=== PATIENT | male | born 1970 | race Caucasian/White ===

== ENCOUNTER 2021-03-07 08:47 | Emergency (ER) | payer OTHER, BC ==
[~2021-03-07] VITALS: Ht 175.3 cm; Wt 109.1 kg
[2021-03-07 09:13] VITALS: BP 146/78
--- NOTE | 2021-03-07 09:51 | RAD ---
EXAM: AP, oblique, lateral and sunrise views of the right knee. DATE: 03/07/2021 9:30 AM INDICATION: Reason: RIGHT POSTERIOR KNEE PAIN / Spl. Instructions: / History: COMPARISON: No Prior FINDINGS: No acute fracture or dislocation. Small joint effusion. Joint spaces are preserved without significan t degenerative/proliferative change. Neutral patellar tracking. IMPRESSION: No acute fracture or dislocation. Electronically signed by: Serjio Jerome MD (03/07/2021 9:49 AM) [id number]
[2021-03-07] MEDS ORDERED: CYCL-331 PO (10:03)
--- NOTE | 2021-03-07 10:04 | PHYS DOC ---
Past History Past Surgical History: Other Additional Past Surgical Histo: hernia sx Alcohol Use: None General Adult EDM: Chief Complaint: LOWEREXTREMITY INJURY HPI: HPI: 50-year-old male presents with right posterior leg pain. Patient was running yesterday and he felt a popping sensation in the back medial part of his thigh. Today he has pain in this area especially with movement radiates down to the knee. It is most painful when he stands up and first starts to walk. After he gets going the pain decreases. It is also painful if he sitting down in the chair is pushing on that area. He denies direct trauma or fall. He has no other complaints this time. Review of Systems: Review of Systems: Constitutional: Denies fever or chills Eyes: Denies change in visual acuity HENT: Denies nasal congestion or sore throat Respiratory: Denies cough or shortness of breath Cardiovascular: Denies chest pain or edema GI: Denies abdominal pain, nausea, vomiting, bloody stools or diarrhea : Denies dysuria Musculoskeletal: Right posterior thigh pain Integument: Denies rash Neurologic: Denies headache, focal weakness or sensory changes Endocrine: Denies polyuria or polydipsia Lymphatic: Denies swollen glands Psychiatric: Denies depression or anxiety Allergies: Allergies: Allergies Coded Allergies Type Severity Reaction Last Updated Verified No Known Drug Allergies 03/07/21 No Physical Exam: PE: Constitutional: Well developed, well nourished, obese, no acute distress, non- toxic appearance. [] HENT: Normocephalic, atraumatic, bilateral external ears normal, oropharynx moist, no oral exudates, nose normal. [] Eyes: PERRLA, EOMI, conjunctiva normal, no discharge. [] Neck: Normal range of motion, no tenderness, supple, no stridor. [] Cardiovascular: Heart rate regular rhythm, no murmur [] Lungs & Thorax: Bilateral breath sounds clear to auscultation [] Abdomen: Bowel sounds normal, soft, no tenderness, no masses, no pulsatile masses. [] Skin: Warm, dry, no erythema, no rash. [] Back: No tenderness, no CVA tenderness. [] Extremities: Right posterior medial thigh tenderness, muscle spasm of the same. [] Neurologic: Alert and oriented X 3, normal motor function, normal sensory function, no focal deficits noted. [] Psychologic: Affect normal, judgement normal, mood normal. [] Current Patient Data: Vital Signs: Vital Signs Date Time Temp Pulse Resp B/P (MAP) Pulse Ox O2 Delivery O2 Flow Rate FiO2 03/07/21 09:13 102 18 146/78 98 EKG: EKG: [] Radiology/Procedures: Radiology/Procedures: [] Impressions: EXAM: AP, oblique, lateral and sunrise views of the right knee. DATE: 03/07/2021 9:30 AM INDICATION: Reason: RIGHT POSTERIOR KNEE PAIN / Spl. Instructions: / History: COMPARISON: No Prior FINDINGS: No acute fracture or dislocation. Small joint effusion. Joint spaces are preserved without significant degenerative/proliferative change. Neutral patellar tracking. IMPRESSION: No acute fracture or dislocation. Electronically signed by: Serjio Jerome MD (03/07/2021 9:49 AM) [id number] DICTATED AND SIGNED BY: SERJIO JEROME MD DATE: 03/07/21 0949 CC: TEJINDER KAY DO ~MTH0 0 Heart Score: C/O Chest Pain: N/A Risk Factors: Risk Factors: DM, Current or recent (<one month) smoker, HTN, HLP, family history of CAD, obesity. Risk Scores: Score 0 - 3: 2.5% MACE over next 6 weeks - Discharge Home Score 4 - 6: 20.3% MACE over next 6 weeks - Admit for Clinical Observation Score 7 - 10: 72.7% MACE over next 6 weeks - Early Invasive Strategies Course & Med Decision Making: Course & Med Decision Making Pertinent Labs and Imaging studies reviewed. (See chart for details) The patient appears to have a strain and/or possible partial tear of the biceps femoris muscle of the right leg. I will treat him with ibuprofen 600 3 times a day and Flexeril. I will give the patient 1 week off from work as there is no light duty. 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 If his condition does not significantly improve he will need to see follow-up. He is stable for discharge at this time. [] Dragon Disclaimer: Marj Disclaimer: This electronic medical record was generated, in whole or in part, using a voice recognition dictation system. Departure Departure: Impression: Primary Impression: Strain of distal biceps femoris tendon Disposition: HOME / SELF CARE / HOMELESS Condition: STABLE Patient Instructions: Hamstring Strain with Rehab-[facility] Scripts Cyclobenzaprine Hcl (CYCLOBENZAPRINE HCL) 10 Mg Tablet 1 TAB PO TID PRN for MUSCLE SPASMS, #30 TAB Prov: TEJINDER KAY DO 03/07/21 TEJINDER KAY DO Mar 07, 2021 10:04
== END 2021-03-07 10:16 | disposition home or self-care (01) ==
LOC: ER 08:47
DX: S46.211A Strain of muscle, fascia and tendon of other parts of biceps, right arm, initial encounter (principal); M62.838 Other muscle spasm; X58.XXXA Exposure to other specified factors, initial encounter; Y93.89 Activity, other specified; Y92.89 Other specified places as the place of occurrence of the external cause; Y99.8 Other external cause status
CPT/HCPCS: 73564; 99283-25